=== PATIENT | male | born 1960 | race Caucasian/White ===

== ENCOUNTER 2024-04-06 12:23 | Emergency (ER) | payer OTHER, SELFPAY ==
[2024-04-06] VITALS (8 sets, daily range): BP systolic 114–173; BP diastolic 84–106
--- NOTE | 2024-04-06 13:00 | EDRN ---
Miryam KOROMA in room w/ pt at this time.
[2024-04-06 13:08] LABS: % Basophils 0.3 % (0-2); % Eosinophils 0.4 % (0-6); % Immature Granulocytes 0.3 % (0-0.5); % Lymphocytes 21.6 % (20.5-51.1); % Monocytes 6.4 % (1.7-9.3); Absolute Lymphocytes 1.4 10^3/uL (1.2-3.4); Absolute Monocytes 0.4 10^3/uL (0.1-0.6); Absolute Neutrophils 4.7 10^3/uL (1.4-6.5); Hematocrit 37.7 % (39.0-52.0); Hemoglobin 13.4 g/dL (13.0-18.0); Mean Corp Hgb Conc. 35.5 g/dL (33.0-37.0); Mean Corpuscular Hgb 32.8 pg (27.0-31.0); Mean Corpuscular Volume 92.2 fL (80.0-94.0); Mean Platelet Volume 10.2 fL (7.4-10.4); Nucleated Red Blood Cells % 0 % (-); Platelet Count 229 10^3/uL (130-400); Red Blood Cell Count 4.09 10^6/uL (4.70-6.10); Red Cell Dist. Width 12.9 % (11.5-14.5); White Blood Cell Count 6.7 10^3/uL (4.8-10.8)
--- NOTE | 2024-04-06 13:26 | ED.GENMED ---
History of Present Illness
General
Chief Complaint: Dizziness
Source: patient and spouse
Exam Limitations: none
Time Seen by Provider: 04/06/24 12:34
Nursing documentation reviewed up to this point in time: agreed with
History of Present Illness
History of Present Illness:
64-year-old male with history of migraines, HTN, HLD, GERD, IBS, Hypothyroid, kidney stones presents after a near syncopal episode yesterday. He states yesterday 5 p.m. he was at a green party outside after working in his yard all day, having had 1 beer,
he became pale, nauseous, sweaty, sat down, drank water and felt better but not 100%. Today 8 a.m. felt 'not really dizzy but lightheaded,' had left hand cramps (which he gets occasionally after working in yard) and arm felt tired. Had 'some
indigestion.' Denies chest pain.
He started working out at the gym this past week, treadmill, elliptical, bike.
At this time he denies feeling weak, lightheaded. Denies CP or SOB. Denies n/d/c.
No significant cardiac FH or personal history.
Past History
Past History
ED Past Medical History: GERD, HTN, Hypercholesterolemia and Hypothyroidism
ED Past Surgical History: None
Social History
Tobacco: Non-smoker
Personal:
Living: with family
Employment: Employed
Review of Systems
Review of Systems
Allergies reviewed?: Yes
All Other Systems: ROS reviewed and negative except as documented in HPI and ROS
Constitutional: Denies fever, fatigue or chills
Respiratory: Denies trouble breathing
Cardiac: Reports diaphoresis and syncope (near syncope yesterday); Denies chest pain or palpitations
ABD/GI: Denies abdominal pain, nausea, vomiting, diarrhea, bloody stools, black stools or anorexia
: Denies dysuria, frequency or difficulty voiding
Musculoskeletal: Reports no symptoms
Skin: Reports no symptoms
Neurological: Reports no symptoms
Phy Exam
Physical Exam
Physical Exam:
GENERAL: No acute distress. A&Ox3.
CONSTITUTIONAL: Afebrile.
EYES: PERRL, conjunctivae normal
ENMT: moist mucus membranes, Pharynx nl
RESPIRATORY: Regular respirations, nonlabored, lungs clear.
CARDIOVASCULAR: Regular rate and rhythm, no murmurs, no rubs.
GI: Soft, nontender, normal BS
MUSCULOSKELETAL: Moves with ease. Well perfused.
SKIN: Warm, dry, pink
PSYCH: Normal mood and affect. Well kept, interactive and appropriate
NEUROLOGIC: Awake, alert and oriented. No focal neurological deficits
Course
Orders/Labs/Results
Orders:
Orders
04/06/24 12:25
EKG [Electrocardiogram (*1)] Urgent
Reason for Study: Chest Pain
EKG- Treatment ONCE
04/06/24 12:40
Cardiac Monitoring- Treatment ONCE
IV Insert/Care/Rem.- Treatment PRN
04/06/24 13:01
Complete Blood Count/With Diff Urgent
Comprehensive Metabolic Panel Urgent
Troponin I Urgent
04/06/24 13:25
CR Chest - 2 Views Urgent
Comment:
Reason For Exam: episode lightheaded, nausea, pale
04/06/24 14:57
Levetiracetam [Keppra] 500 mg PO NOW STA
Abnormal Lab Results
04/06/24
13:01
RBC 4.09 L 10^6/uL
(4.70-6.10)
Hct 37.7 L %
(39.0-52.0)
MCH 32.8 H pg
(27.0-31.0)
Glucose 101 H mg/dl
(70-99)
Total Bilirubin 2.4 H mg/dl
(0.2-1.3)
04/06/24 13:01
04/06/24 13:01
Vital Signs
Initial and Last Documented VS:
Initial Vital Signs
Temp Pulse Resp BP Pulse Ox
98.2 F 62 16 173/106 98
04/06/24 12:29 04/06/24 12:29 04/06/24 12:29 04/06/24 12:29 04/06/24 12:29
Last Documented Vital Signs
Temp Pulse Resp BP Pulse Ox
98.2 F 61 14 114/87 98
04/06/24 12:29 04/06/24 15:48 04/06/24 15:48 04/06/24 15:48 04/06/24 15:48
MDM/Problems Addressed
MDM/Problems Addressed:
64-year-old male with history of migraines, HTN, HLD, GERD, IBS, Hypothyroid, kidney stones presents after a near syncopal episode yesterday. He states yesterday 5 p.m. he was at a green party outside after working in his yard all day, having had 1 beer,
he became pale, nauseous, sweaty, sat down, drank water and felt better but not 100%. Today 8 a.m. felt 'not really dizzy but lightheaded,' had left hand cramps (which he gets occasionally after working in yard) and arm felt tired. Had 'some
indigestion.' Denies chest pain.
He started working out at the gym this past week, treadmill, elliptical, bike.
At this time he denies feeling weak, lightheaded. Denies CP or SOB. Denies n/d/c.
No significant cardiac FH or personal history.
EKG NSR
CBC: No clinically significant abnormality
CMP: No clinically significant abnormality
Troponin within normal limits
Chest x-ray: NAD. Moderate tortuosity of the thoracic aorta which is unchanged from 08/06/2023
Pt stable for discharge.
Referred to cardiology as out pt.
Chronic conditions affecting care: HTN
*EKG
Interpreted by ED Provider?: Yes
EKG Intrepretation Date: 04/06/24
Interpretation: normal
Heart Rate: 68
Rate: normal
Rhythm: sinus
[place]: normal axis
Interval: normal interval
QRS Pattern: normal QRS
Ischemia: no ischemia
*Critical Care Note
Total Time (30-74mins, 75-104mins- exclusive of procedures): Not Applicable
ED Attending Note
-
Portions of this chart may have been created with voice recognition software.� Occasional wrong word or��sound alike� substitutions may have occurred due to the inherent limitations of voice recognition software.
Discharge Plan
Departure
Patient Disposition: Home (Routine Discharge)
Date of Disposition: 04/06/24
Time of Disposition: 15:02
Patient with high blood pressure during this ER visit?: No
Condition: Good
Discharge Problem:
Near syncope
Instructions: Near Fainting (DC)
Referrals:
Viktoria Garcia CRNP [Family Provider] -
Tyron Sifuentes DO [Active] - Next open appointment
Activity Restrictions/Additional Instructions:
As we discussed, your workup here today shows nothing worrisome.
Stay hydrated and take frequent rests when you are working out in the sun.
Call the cardiology office to make the next available appointment for more thorough cardiac evaluation.
Interventions
Interventions:
*Risk Screen - Suicide Last Done: 04/06/24 12:29
*General Assessment Last Done: 04/06/24 12:49
*Neglect/Abuse Screening Last Done: 04/06/24 12:29
ED- Fall Risk Assessment Last Done: 04/06/24 12:29
*ED COVID-19 Vaccine History Last Done: 04/06/24 12:49
*Nursing Disposition Last Done: 04/06/24 15:55
ED- Neurological Assessment Last Done: 04/06/24 13:02
ED- Cardiac Assessment Last Done: 04/06/24 13:06
ED Swallowing Screen Last Done: 04/06/24 13:06
Discharge Date and Time
Discharge Date/Time: 04/06/24 15:55
Print Language: [id number]
[2024-04-06 13:34] LABS: ALT (SGPT) 27 U/L (0-50); AST (SGOT) 34 U/L (17-59); Albumin 4.3 g/dl (3.5-5.0); Alkaline Phosphatase 64 U/L (38-126); Blood Urea Nitrogen 11 mg/dl (9-20); Calcium 9.5 mg/dl (8.4-10.2); Carbon Dioxide 26 mmol/L (22-30); Chloride 106 mmol/L (98-107); Glucose 101 mg/dl (70-99); Potassium 4.4 mmol/L (3.5-5.1); Sodium 137 mmol/L (135-145); Total Bilirubin 2.4 mg/dl (0.2-1.3); Total Protein 6.7 g/dl (6.3-8.2); eGFR > 60.00
[2024-04-06 13:43] LABS: Troponin I < 0.012 ng/ml
== END 2024-04-06 15:55 | disposition home or self-care (01) ==
LOC: EMR 12:23
PROVIDERS: Registered Nurse; EMERGENCY PHYSICIAN Emergency Medicine; FAMILY PHYSICIAN Nurse Practitioner
DX: R55 Syncope and collapse (principal); I10 Essential (primary) hypertension; E78.00 Pure hypercholesterolemia, unspecified; E03.9 Hypothyroidism, unspecified; K21.9 Gastro-esophageal reflux disease without esophagitis; K58.9 Irritable bowel syndrome, unspecified
CPT/HCPCS: 99285; 71046; 80053; 84484; 85025; 93005

== ENCOUNTER → 2024-04-28 15:58 | Outpatient (REF) | payer OTHER, SELFPAY | LOC: HWRCS 15:58 | PROVIDERS: ATTENDING PHYSICIAN Internal Medicine Interventional Cardiology; FAMILY PHYSICIAN Nurse Practitioner | DX: E78.00 Pure hypercholesterolemia, unspecified (principal); I71.21 Aneurysm of the ascending aorta, without rupture; R73.03 Prediabetes | CPT/HCPCS: 93306 ==

== ENCOUNTER → 2024-08-11 07:55 | Outpatient (REF) | payer OTHER, SELFPAY | LOC: HWRAD 07:55 | PROVIDERS: ATTENDING PHYSICIAN Internal Medicine Interventional Cardiology; FAMILY PHYSICIAN Nurse Practitioner | DX: I71.21 Aneurysm of the ascending aorta, without rupture (principal) | CPT/HCPCS: 71275; Q9967 ==

== ENCOUNTER → 2025-08-12 07:50 | Outpatient (REF) | payer OTHER, SELFPAY | LOC: RAD 07:50 | PROVIDERS: ATTENDING PHYSICIAN Internal Medicine Interventional Cardiology; FAMILY PHYSICIAN Nurse Practitioner | DX: I71.21 Aneurysm of the ascending aorta, without rupture (principal); E78.00 Pure hypercholesterolemia, unspecified | CPT/HCPCS: 71275; Q9967 ==